=== PATIENT | female | born 1970 | race Caucasian/White ===

== ENCOUNTER 2023-10-10 15:38 | Emergency (ER) | payer BC ==
[~2023-10-10] VITALS: Ht 152.4 cm; Wt 141.5 kg
[2023-10-10] MEDS: METHYLPREDNISOLONE SOD SUCC 125 MG/2ML VIAL IV ONE (16:37)
[2023-10-10] MEDS: FAMOTIDINE 20 MG/2 ML VIAL IV STA (16:38)
[2023-10-10] MEDS: SODIUM CHLORIDE 0.9% 1000ML 1,000 ML IV ONE (16:38)
[2023-10-10] MEDS: DIPHENHYDRAMINE HCL INJ 50 MG/ML VIAL IV ONE (16:38)
[2023-10-10 17:46] VITALS: O2SAT 98
[2023-10-10] MEDS ORDERED: METHYLPREDNISOLO4 M1 PO (18:03)
[2023-10-10] MEDS ORDERED: AMOX TR-K CLV1 EAC2 PO (18:03)
[2023-10-10] MEDS ORDERED: FAMOTIDINE20 MG PO (18:03)
== END 2023-10-10 18:19 | disposition home or self-care (01) ==
LOC: ER 15:54
DX: R21 Rash and other nonspecific skin eruption (principal); T78.40XA Allergy, unspecified, initial encounter; J45.909 Unspecified asthma, uncomplicated
CPT/HCPCS: 99284; J1200; J2919; J7030

== ENCOUNTER 2025-03-18 05:06 | Emergency (ER) | payer BC ==
[~2025-03-18] VITALS: Ht 142.2 cm; Wt 117.9 kg
[~2025-03-18 05:06] MED LIST: AMOX TR-K CLV1 EAC2 PO; FAMOTIDINE20 MG PO; METHYLPREDNISOLO4 M1 PO
[2025-03-18] MEDS ORDERED: AMOX TR-K CLV1 EAC2 PO (06:56)
[2025-03-18 07:47] VITALS: PULSE 57; RESP 18; TEMP 97.9
[2025-03-18 07:48] VITALS: BP 104/62; PULSE 57; RESP 18; O2SAT 100
== END 2025-03-18 07:10 | disposition home or self-care (01) ==
LOC: ER 06:15
DX: S50.872A Other superficial bite of left forearm, initial encounter (principal); W54.0XXA Bitten by dog, initial encounter; Y92.89 Other specified places as the place of occurrence of the external cause; J45.909 Unspecified asthma, uncomplicated
CPT/HCPCS: 99283